=== PATIENT | female | born 1990 | race Hispanic/Latino ===

== ENCOUNTER 2018-11-15 14:08 | Outpatient (CLI) | payer OTHER ==
--- NOTE | 2018-11-15 15:37 | MMO ---
Bilateral MAMMO Bilat Diag [facility]. CLINICAL HISTORY: Patient is 28 years old and is seen for diagnostic exam and lump or thickening in both breasts. The patient has no family history of breast cancer. The patient has no personal history of cancer. VIEWS: The views performed were: bilateral craniocaudal with tomosynthesis; bilateral mediolateral oblique with tomosynthesis; and bilateral mediolateral with tomosynthesis. FILMS COMPARED: The present examination has been compared to a prior imaging study performed at [facility] on 11/15/2018. MAMMOGRAM FINDINGS: The breasts are heterogeneously dense, which could obscure a lesion on mammography. Finding 1: There are benign appearing calcifications seen in both breasts. There are no suspicious masses, suspicious calcifications, or new areas of architectural distortion. IMPRESSION: FINDING 1: CALCIFICATIONS IN BOTH BREASTS ARE BENIGN. FINDING 2: FINDINGS IN BOTH BREASTS ARE BENIGN. ULTRASOUND THE PALPABLE FINDING. NEGATIVE A ROUTINE FOLLOW-UP MAMMOGRAM AT AGE 40 IS RECOMMENDED. THE RESULTS OF THIS EXAM WERE SENT TO THE PATIENT. ACR BI-RADS Category 2 - Benign finding MAMMOGRAPHY NOTE: 1. A negative mammogram report should not delay a biopsy if a dominant of clinically suspicious mass is present. 2. Approximately 10% to 15% of breast cancers are not detected by mammography. 3. Adenosis and dense breasts may obscure an underlying neoplasm.
--- NOTE | 2018-11-15 16:02 | ULT ---
LEFT BREAST ULTRASOUND LIMITED: 11/15/18 HISTORY: Palpable finding in the left breast at approximately 1 o'clock. There are two very small circumscribed cysts up to 0.4 cm in size, these are too small to account for a palpable finding. Negative mammogram in this region. IMPRESSION: BIRADS 2: Benign Finding(s) Routine annual screening mammography (for women over age 40). Consider follow-up mammography at age 35-40. If the patient develops a new palpable finding follow-up ultrasound study might be of benefit. POS: OFF
--- NOTE | 2018-11-15 16:04 | ULT ---
RIGHT BREAST ULTRASOUND LIMITED: 11/15/18 HISTORY: Patient presents with a palpable finding at 11 o'clock, 10 cm from the nipple. No solid or cystic mass or other significant abnormality noted in the right breast. IMPRESSION: BIRADS 2: Benign Finding(s) Routine annual screening mammography (for women over age 40). Consider follow-up mammography at age 35-40 depending upon risk fractures. If the patient develops a new palpable finding follow-up breast ultrasound might be considered. POS: OFF
== END 2018-11-15 14:09 | disposition home or self-care (01) ==
LOC: BICMAMMO 14:08
PROVIDERS: ATTEND Family Medicine
DX: N63.0 Unspecified lump in unspecified breast (principal); R92.1 Mammographic calcification found on diagnostic imaging of breast
CPT/HCPCS: 77066; G0279